=== PATIENT | female | born 1950 | race Caucasian/White ===

== ENCOUNTER 2017-04-09 15:03 | Outpatient (CLI) | payer MEDICARE | END 2017-04-09 15:04 | disposition home or self-care (01) | LOC: BICRAD 15:03 | PROVIDERS: ATTEND Internal Medicine | DX: J18.9 Pneumonia, unspecified organism (principal) | CPT/HCPCS: 71046 ==

== ENCOUNTER 2017-04-22 15:12 | Outpatient (CLI) | payer MEDICARE | END 2017-04-22 15:13 | disposition home or self-care (01) | LOC: BICRAD 15:12 | PROVIDERS: ATTEND Internal Medicine | DX: R06.02 Shortness of breath (principal) | CPT/HCPCS: 71046 ==

== ENCOUNTER 2017-05-06 15:41 | Outpatient (CLI) | payer MEDICARE | END 2017-05-06 15:42 | disposition home or self-care (01) | LOC: BICRAD 15:41 | PROVIDERS: ATTEND Internal Medicine | DX: J18.9 Pneumonia, unspecified organism (principal); J98.11 Atelectasis | CPT/HCPCS: 71046 ==

== ENCOUNTER 2017-06-08 19:30 | Outpatient (CLI) | payer MEDICARE | END 2017-06-08 19:31 | disposition home or self-care (01) | LOC: SLEEPLAB 19:30 | PROVIDERS: ATTEND Internal Medicine Pulmonary Disease | DX: G47.33 Obstructive sleep apnea (adult) (pediatric) (principal); R53.83 Other fatigue; I10 Essential (primary) hypertension | CPT/HCPCS: 95811 ==

== ENCOUNTER 2018-01-12 15:00 | Outpatient (CLI) | payer MEDICARE | END 2018-01-12 15:01 | disposition home or self-care (01) | LOC: BICMAMMO 15:00 | PROVIDERS: ATTEND Internal Medicine | DX: Z12.31 Encounter for screening mammogram for malignant neoplasm of breast (principal); Z80.3 Family history of malignant neoplasm of breast | CPT/HCPCS: 77063; 77067 ==

== ENCOUNTER 2018-03-06 05:27 | Outpatient (CLI) | payer MEDICARE ==
[2018-03-06 12:02] LABS: #Basophils 0.1 thou/uL (0.0-0.2); #Eosinphils 0.2 thou/uL (0.0-0.7); #Lymphocytes 1.5 thou/uL (1.20-3.40); #Monocytes 0.6 thou/uL (0.11-0.59); #Neutrophils 2.3 thou/uL (1.40-6.50); %Basophils 1.5 % (0.0-1.0); %Eosinophils 3.3 % (0.0-10.0); %Monocytes 13.2 % (0.0-10.0); Hemoglobin 12.1 g/dL (12.0-16.0); Mean Corpuscular HGB CONC 32.7 g/dL (32.0-36.0); Mean Corpuscular Hemoglobin 30.1 pg (27.0-31.0); Mean Platelet Volume 7.7 fL (7.4-10.4); Platelet Count 259 thou/uL (130-400); RBC Distribution Width 11.7 % (11.5-14.5); Red Blood Cell (RBC) Count 4.01 mill/uL (4.20-5.40); White Blood Cell (WBC) Count 4.6 thou/uL (4.8-10.8)
[2018-03-06 12:26] LABS: Anion Gap 17 mmol/L (10-20); BUN (Urea Nitrogen) 13 mg/dL (9.8-20.1); Calc. Creatinine Clearance 0 mL/min (70-130); Calcium 9.9 mg/dL (7.8-10.44); Carbon Dioxide 21 mmol/L (23-31); Chloride 99 mmol/L (98-107); Estimated GFR-MDRD 83; Glucose 69 mg/dL (80-115); Potassium 5.2 mmol/L (3.5-5.1); Sodium 132 mmol/L (136-145)
== END 2018-03-06 05:28 | disposition home or self-care (01) ==
LOC: LABBT 05:27
PROVIDERS: ATTEND Specialist
DX: Z01.818 Encounter for other preprocedural examination (principal); K62.1 Rectal polyp
CPT/HCPCS: 80048; 85025; 93005; 93010

== ENCOUNTER 2018-03-12 06:02 | Day surgery (SDC) | payer MEDICARE ==
[2018-03-06 10:49] VITALS: BMI 27.0
[2018-03-12] MEDS ORDERED: Ketorolac Tromethamine 30 MG/ML VIAL ONE (06:19)
[2018-03-12] MEDS ORDERED: cefOXitin Sodium/Dextrose,Iso 2 GM in Premix Bag 1 BAG IVPB SCH (06:30)
[2018-03-12] MEDS ORDERED: Bupivacaine HCl 0.25%/Epi 0.0005/PF 10 ML VIAL FS ONE (07:04)
[2018-03-12] MEDS ORDERED: Fentanyl 100 MCG/2 ML VIAL ONE (07:24)
[2018-03-12] MEDS ORDERED: SUGAMMADEX SODIUM 200 MG/2 ML VIAL ONE (08:26)
--- NOTE | 2018-03-12 09:49 | OP ---
DATE OF PROCEDURE: 03/12/2018 PREOPERATIVE DIAGNOSIS: Rectal polyp. POSTOPERATIVE DIAGNOSIS: Rectal polyp. OPERATION PERFORMED: Transanal resection of rectal polyp. ANESTHESIA: General endotracheal. INDICATIONS: The patient is a 67-year-old white female. She recently underwent a colonoscopy which revealed a 3 cm polyp within her rectum that was not amenable to colonoscopic resection. She is taken to the operative room at this time for transanal resection. DESCRIPTION OF OPERATION: Informed consent was obtained. She was taken to the operating room where general endotracheal anesthesia was obtained. She was rolled over into prone dedrick-knife position. The perianal area was trimmed of hair, prepped with Betadine and draped in sterile fashion. The buttocks had been taped apart during the prep. Local anesthetic was infiltrated in four quadrant in a sphincteric fashion using 0.25% Marcaine with epinephrine. The anus was gently dilated and the anal retractor was used to visualize the polyp. This was on the anterior aspect of the rectum about 9 cm from the anal verge. I was able to grasp this with a Bergen clamp. I placed a suture of 3-0 Vicryl cephalad to the polyp. I infiltrated additional local anesthetics submucosally around the polyp. The polyp was then excised circumferentially in a full-thickness fashion using electrocautery. It was removed intact and passed off the field. The defect was closed in a full-thickness fashion using a running suture of 3-0 Vicryl placed in a to-and-fro fashion. There were meticulous hemostasis and excellent closure of the defect. There were no complications. The patient tolerated the procedure well. Gelfoam with lidocaine was placed within the rectal vault and dry gauze with mesh patch were placed externally. Job ID: [id number]
[2018-03-12] MEDS ORDERED: Glycopyrrolate 0.2 MG/ML 5 ML SYRINGE ONE (17:17)
[2018-03-12] MEDS ORDERED: Rocuronium Bromide 10 MG/ML (10ML VIAL) ONE (17:17)
[2018-03-12] MEDS ORDERED: ePHEDrine 50 MG/ML VIAL ONE (17:17)
[2018-03-12] MEDS ORDERED: PROPOFOL 200 MG/20 ML VIAL ONE (17:17)
[2018-03-12] MEDS ORDERED: Lidocaine 1% PF 5 ML VIAL ONE (17:17)
[2018-03-12] MEDS ORDERED: PHENYLEPHRINE-NS 100 MCG/ML 10 ML SYRINGE ONE (17:17)
== END 2018-03-12 10:58 | disposition home or self-care (01) ==
LOC: SDC 06:02
PROVIDERS: ATTEND Specialist
PROC: 0DBP7ZZ Excision of Rectum, Via Natural or Artificial Opening (ICD-10-PCS; principal; 2018-03-12)
DX: D12.8 Benign neoplasm of rectum (principal); F31.9 Bipolar disorder, unspecified; M81.0 Age-related osteoporosis without current pathological fracture; E03.9 Hypothyroidism, unspecified; F10.11 Alcohol abuse, in remission; Z87.891 Personal history of nicotine dependence; Z79.899 Other long term (current) drug therapy
CPT/HCPCS: 88305; J0131; J1885; J2001; J2704; J3010; J3490

== ENCOUNTER 2019-01-21 14:29 | Outpatient (CLI) | payer MEDICARE ==
--- NOTE | 2019-01-21 16:23 | MMO ---
Bilateral MAMMO Bilat Screen [facility]. CLINICAL HISTORY: Patient is 68 years old and is seen for screening. The patient has the following family history of breast cancer: mother, malignant (generic). The patient has no personal history of cancer. VIEWS: The views performed were: bilateral craniocaudal with tomosynthesis and bilateral mediolateral oblique with tomosynthesis. FILMS COMPARED: The present examination has been compared to prior imaging studies performed at [facility] on 10/27/2014, 01/08/2016, 01/08/2017 and 01/12/2018. This study has been interpreted with the assistance of computer-aided detection. MAMMOGRAM FINDINGS: There are scattered fibroglandular densities. There are no suspicious masses, suspicious calcifications, or new areas of architectural distortion. IMPRESSION: THERE IS NO MAMMOGRAPHIC EVIDENCE OF MALIGNANCY. A ROUTINE FOLLOW-UP MAMMOGRAM IN 1 YEAR IS RECOMMENDED. THE RESULTS OF THIS EXAM WERE SENT TO THE PATIENT. ACR BI-RADS Category 1 - Negative MAMMOGRAPHY NOTE: 1. A negative mammogram report should not delay a biopsy if a dominant of clinically suspicious mass is present. 2. Approximately 10% to 15% of breast cancers are not detected by mammography. 3. Adenosis and dense breasts may obscure an underlying neoplasm. Reported by: YAIR COCHRAN MD Electonically Signed: [id number]
== END 2019-01-21 14:30 | disposition home or self-care (01) ==
LOC: BICMAMMO 14:29
PROVIDERS: ATTEND Internal Medicine
DX: Z12.31 Encounter for screening mammogram for malignant neoplasm of breast (principal); Z80.3 Family history of malignant neoplasm of breast
CPT/HCPCS: 77063; 77067

== ENCOUNTER 2019-03-23 14:56 | Outpatient (CLI) | payer MEDICARE ==
--- NOTE | 2019-03-23 15:51 | BD ---
Exam: DEXA Bone Density 03/23/19 HISTORY: Postmenopausal screening for osteoporosis. FINDINGS: Lumbar Spine: BMD (g/cm2) T-SCORE Z-SCORE L1 0.796 -1.8 0.1 L2 0.789 -2.3 -0.1 L3 0.796 -2.6 -0.4 L4 0.901 -1.5 0.8 L1-L4 0.824 -2.0 0.1 Femoral Neck: 0.619 -2.1 -0.3 Total Femur: 0.697 -2.0 -0.5 Left forearm: UD 0.340 -1.8 -0.3 Mid 0.371 -4.3 -2.2 1/3 0.577 -2.0 0.1 Total: 0.391 -3.5 -1.5 The ten year fracture risk for a major osteoporotic fracture is 18% and for hip fracture is 3.5%. IMPRESSION: Osteopenia. POS: ALEJANDRA
== END 2019-03-23 14:57 | disposition home or self-care (01) ==
LOC: BICMAMMO 14:56
PROVIDERS: ATTEND Internal Medicine Rheumatology
DX: M81.0 Age-related osteoporosis without current pathological fracture (principal); M85.89 Other specified disorders of bone density and structure, multiple sites
CPT/HCPCS: 77080

== ENCOUNTER 2020-03-22 15:53 | Outpatient (CLI) | payer MEDICARE ==
--- NOTE | 2020-03-22 17:02 | MMO ---
Bilateral MAMMO Bilat Screen [facility]. CLINICAL HISTORY: Patient is 69 years old and is seen for screening. The patient has the following family history of breast cancer: mother, malignant (generic). The patient has no personal history of cancer. VIEWS: The views performed were: bilateral craniocaudal with tomosynthesis and bilateral mediolateral oblique with tomosynthesis. FILMS COMPARED: The present examination has been compared to prior imaging studies performed at [facility] on 01/08/2016, 01/08/2017, 01/12/2018 and 01/21/2019. This study has been interpreted with the assistance of computer-aided detection. MAMMOGRAM FINDINGS: The breasts are heterogeneously dense, which could obscure a lesion on mammography. There are no suspicious masses, suspicious calcifications, or new areas of architectural distortion. IMPRESSION: THERE IS NO MAMMOGRAPHIC EVIDENCE OF MALIGNANCY. A ROUTINE FOLLOW-UP MAMMOGRAM IN 1 YEAR IS RECOMMENDED. THE RESULTS OF THIS EXAM WERE SENT TO THE PATIENT. ACR BI-RADS Category 1 - Negative MAMMOGRAPHY NOTE: 1. A negative mammogram report should not delay a biopsy if a dominant of clinically suspicious mass is present. 2. Approximately 10% to 15% of breast cancers are not detected by mammography. 3. Adenosis and dense breasts may obscure an underlying neoplasm. Reported by: JOURDAN ANG MD Electonically Signed: [id number]
== END 2020-03-22 15:54 | disposition home or self-care (01) ==
LOC: BICMAMMO 15:53
PROVIDERS: ATTEND Internal Medicine
DX: Z12.31 Encounter for screening mammogram for malignant neoplasm of breast (principal); Z80.3 Family history of malignant neoplasm of breast
CPT/HCPCS: 77063; 77067

== ENCOUNTER 2020-04-05 14:01 | Outpatient (CLI) | payer MEDICARE ==
--- NOTE | 2020-04-05 14:52 | BD ---
Exam: DEXA Bone Density 04/05/20 HISTORY: Postmenopausal screening for osteoporosis. Lumbar Spine: BMD (g/cm2) T-SCORE Z-SCORE L1 0.762 -2.1 -0.1 L2 0.745 -2.6 -0.4 L3 0.764 -2.9 -0.6 L4 0.841 -2.0 0.3 L1-L4 0.782 -2.4 -0.2 Left Forearm: UD: 0.316 -2.2 -0.6 Mid: 0.390 -4.0 -1.8 /: 0.576 -2.0 0.2 Total: 0.396 -3.4 -1.3 There has been interval reduction of 5.1% in the MBD of the lumbar spine and a reduction of 0.2% in t he BMD of the left forearm since 03/23/2019. Impression: Osteopenia. POS: OFF
== END 2020-04-05 14:02 | disposition home or self-care (01) ==
LOC: BICMAMMO 14:01
PROVIDERS: ATTEND Internal Medicine Rheumatology
DX: M81.0 Age-related osteoporosis without current pathological fracture (principal); M85.832 Other specified disorders of bone density and structure, left forearm
CPT/HCPCS: 77080

== ENCOUNTER 2021-11-22 17:30 | Outpatient (CLI) | payer MEDICARE | END 2021-11-22 17:31 | disposition home or self-care (01) | LOC: SLEEPLAB 17:30 | PROVIDERS: ATTEND Internal Medicine Critical Care Medicine | DX: G47.33 Obstructive sleep apnea (adult) (pediatric) (principal); R06.83 Snoring; F31.9 Bipolar disorder, unspecified; I10 Essential (primary) hypertension; K21.9 Gastro-esophageal reflux disease without esophagitis; G47.00 Insomnia, unspecified | CPT/HCPCS: 95800 ==

== ENCOUNTER 2022-01-08 19:00 | Outpatient (CLI) | payer MEDICARE | END 2022-01-08 19:01 | disposition home or self-care (01) | LOC: SLEEPLAB 19:00 | PROVIDERS: ATTEND Internal Medicine Critical Care Medicine | DX: G47.33 Obstructive sleep apnea (adult) (pediatric) (principal); R53.83 Other fatigue; F31.9 Bipolar disorder, unspecified; K21.9 Gastro-esophageal reflux disease without esophagitis; R06.83 Snoring; G47.00 Insomnia, unspecified; I10 Essential (primary) hypertension; G47.10 Hypersomnia, unspecified; G47.61 Periodic limb movement disorder | CPT/HCPCS: 95811 ==

== ENCOUNTER 2022-03-08 22:48 | Inpatient (IN) | payer MEDICARE ==
[2022-03-08 23:28] LABS: Bacteria/HPF None Seen HPF (None Seen); Bilirubin Negative (Negative); Blood, Urine Negative (Negative); Clarity Clear (Clear); Glucose, Urine (Dipstick) Normal (Negative); Ketone, Urine 150 mg/dL (Negative); Leukocyte Negative Leu/uL (Negative); Nitrite Negative (Negative); Protein, Urine (Dipstick) 50 mg/dL (Neg-Trace); RBC/HPF 0-3 HPF (0-3); Specific Gravity, Urine 1.018 (1.002-1.036); Squamous Epithelial None Seen HPF (0-3); Urobilinogen Normal mg/dL (Less than 2); WBC/HPF 0-3 HPF (0-3); pH, Urine 5.5 (5.0-9.0)
[2022-03-08 23:54] LABS: Amphetamine Not Detected (NotDetected); Barbiturates Screen Not Detected (NotDetected); Benzodiazepine Screen Not Detected (NotDetected); Cocaine Metabolite Screen Not Detected (NotDetected); Methadone Not Detected (NotDetected); Methamphetamine Not Detected (NotDetected); Opiate Screen Not Detected (NotDetected); Oxycodone Screen Not Detected (NotDetected); Phencyclidine (PCP) Not Detected (NotDetected); THC/Cannabinoid Screen Not Detected (NotDetected); Tricyclic Screen Not Detected (NotDetected)
[2022-03-09 00:14] LABS: #Monocytes 0.3 thou/uL (0.11-0.59); #Neutrophils 4.8 thou/uL (1.40-6.50); %Basophils 0.3 % (0.0-1.0); %Eosinophils 0.1 % (0.0-10.0); %Lymphocytes 16.7 % (21.0-51.0); %Monocytes 5.5 % (0.0-10.0); %Neutrophils 77.4 % (42.0-75.0); Hemoglobin 12.1 g/dL (12.0-16.0); Mean Corpuscular HGB CONC 35.2 g/dL (32.0-36.0); Mean Corpuscular Hemoglobin 32.2 pg (27.0-31.0); Mean Corpuscular Volume 91.6 fl (78.0-98.0); Mean Platelet Volume 6.8 fL (7.4-10.4); Platelet Count 368 10x3/uL (130-400); Red Blood Cell (RBC) Count 3.76 mill/uL (4.20-5.40); White Blood Cell (WBC) Count 6.2 10x3/uL (4.8-10.8)
[2022-03-09 00:20] LABS: ALT (SGPT) 19 U/L (8-55); AST (SGOT) 23 U/L (5-34); Albumin 4.3 g/dL (3.4-4.8); Alkaline Phosphatase 60 U/L (40-110); BUN (Urea Nitrogen) 7 mg/dL (9.8-20.1); Bilirubin, Total 0.5 mg/dL (0.2-1.2); Calc. Creatinine Clearance 0 mL/min (70-130); Calcium 9.4 mg/dL (7.8-10.44); Carbon Dioxide 14 mmol/L (23-31); Chloride 89 mmol/L (98-107); Estimated GFR 96; Globulin 3.2 g/dL (2.4-3.5); Glucose 127 mg/dL (83-110); Lipase 13 U/L (8-78); Potassium 4.1 mmol/L (3.5-5.1); Protein, Total 7.5 g/dL (5.8-8.1); Sodium 121 mmol/L (136-145)
[2022-03-09 00:24] LABS: Anion Gap 22 mmol/L (10-20)
[2022-03-09 00:34] LABS: Acetaminophen Less than 10.0 mcg/mL (10.0-30.0); Alcohol Less than 10 mg/dL (Less than 10); Salicylate Less than 8.0 mg/dL (15.0-30.0)
[2022-03-09 01:05] LABS: Actual Bicarbonate (HCO3v) 23 mEq/L (22-28); Analyzer IN Cardio ER; Base Excess -3.2 mEq/L (-2.0 to +3.0); Calcium, Ionized (venous) 1.11 mmol/L (1.16-1.32); Chloride (VBG) 92 mmol/L (98-106); Potassium (VBG) 4.53 mmol/L (3.70-5.30); Sodium 122.7 mmol/L (133-146); pH (venous) 7.34 (7.32-7.43)
[2022-03-09] MEDS ORDERED: Sodium Chloride 0.9% 1,000 ML IV SCH ×2 (02:15→23:15)
[2022-03-09 02:26] LABS: Free T4 (Free Thyroxine) 1.62 ng/dL (0.70-1.48)
[2022-03-09] MEDS ORDERED: Acetaminophen 325 MG TAB PO PRN (02:57)
[2022-03-09] MEDS ORDERED: Ondansetron PF 4 MG/2 ML Vial IVP PRN (02:57)
[2022-03-09 04:25] VITALS: BMI 20.2
[2022-03-09 04:31] LABS: #Basophils 0.1 thou/uL (0.0-0.2); #Lymphocytes 1.7 thou/uL (1.20-3.40); #Monocytes 0.5 thou/uL (0.11-0.59); #Neutrophils 3.5 thou/uL (1.40-6.50); %Basophils 1.5 % (0.0-1.0); %Eosinophils 0.2 % (0.0-10.0); %Lymphocytes 29.9 % (21.0-51.0); %Monocytes 7.8 % (0.0-10.0); %Neutrophils 60.6 % (42.0-75.0); Hemoglobin 11.9 g/dL (12.0-16.0); Mean Corpuscular Hemoglobin 31.3 pg (27.0-31.0); Mean Corpuscular Volume 92.1 fl (78.0-98.0); Mean Platelet Volume 6.7 fL (7.4-10.4); Platelet Count 369 10x3/uL (130-400); RBC Distribution Width 11.2 % (11.5-14.5); Red Blood Cell (RBC) Count 3.79 mill/uL (4.20-5.40); White Blood Cell (WBC) Count 5.8 10x3/uL (4.8-10.8)
[2022-03-09 04:56] LABS: Anion Gap 17 mmol/L (10-20); BUN (Urea Nitrogen) 5 mg/dL (9.8-20.1); Calc. Creatinine Clearance 96 mL/min (70-130); Calcium 9.4 mg/dL (7.8-10.44); Carbon Dioxide 20 mmol/L (23-31); Chloride 94 mmol/L (98-107); Estimated GFR 99; Glucose 103 mg/dL (83-110); Potassium 4.1 mmol/L (3.5-5.1); Sodium 127 mmol/L (136-145)
[2022-03-09] MEDS ORDERED: FLU VACC QS2022-23(65YR UP)/PF 240 MCG/0.7 ML SYRINGE IM ONE (09:00)
[2022-03-09 11:31] LABS: Anion Gap 15 mmol/L (10-20); BUN (Urea Nitrogen) 5 mg/dL (9.8-20.1); Calc. Creatinine Clearance 100 mL/min (70-130); Calcium 8.9 mg/dL (7.8-10.44); Carbon Dioxide 22 mmol/L (23-31); Chloride 93 mmol/L (98-107); Estimated GFR 99; Glucose 103 mg/dL (83-110); Potassium 3.9 mmol/L (3.5-5.1); Sodium 126 mmol/L (136-145)
[2022-03-09 13:39] LABS: Anion Gap 16 mmol/L (10-20); BUN (Urea Nitrogen) 5 mg/dL (9.8-20.1); Calc. Creatinine Clearance 100 mL/min (70-130); Calcium 8.9 mg/dL (7.8-10.44); Carbon Dioxide 21 mmol/L (23-31); Chloride 91 mmol/L (98-107); Estimated GFR 99; Glucose 95 mg/dL (83-110); Potassium 4.1 mmol/L (3.5-5.1); Sodium 124 mmol/L (136-145)
[2022-03-09] MEDS ORDERED: Ipratropium/Albuterol 3 ML NEB NEB PRN (17:46)
[2022-03-09 19:16] LABS: Anion Gap 15 mmol/L (10-20); BUN (Urea Nitrogen) 4 mg/dL (9.8-20.1); Calc. Creatinine Clearance 100 mL/min (70-130); Calcium 9.2 mg/dL (7.8-10.44); Carbon Dioxide 23 mmol/L (23-31); Chloride 92 mmol/L (98-107); Estimated GFR 99; Glucose 112 mg/dL (83-110); Potassium 3.8 mmol/L (3.5-5.1); Sodium 126 mmol/L (136-145)
[2022-03-09] MEDS: Bisoprolol Fumarate 5 MG TAB PO SCH (20:37)
[2022-03-09] MEDS: Aspirin 81 mg Enteric Coated Tablet PO SCH (20:38)
[2022-03-09] MEDS: Senokot S 8.6-50 MG TAB PO SCH (20:38)
[2022-03-09] MEDS: Famotidine 20 MG TAB PO SCH (20:38)
[2022-03-09] MEDS: Simvastatin 10 MG TAB PO SCH (20:38)
[2022-03-09] MEDS: QUEtiapine 25 MG TAB PO SCH (20:38)
[2022-03-09 21:45] LABS: Anion Gap 15 mmol/L (10-20); BUN (Urea Nitrogen) 4 mg/dL (9.8-20.1); Calc. Creatinine Clearance 105 mL/min (70-130); Calcium 8.9 mg/dL (7.8-10.44); Carbon Dioxide 23 mmol/L (23-31); Chloride 89 mmol/L (98-107); Estimated GFR 100; Glucose 100 mg/dL (83-110); Potassium 3.8 mmol/L (3.5-5.1); Sodium 123 mmol/L (136-145)
[2022-03-09] MEDS ORDERED: NIFEdipine XL 60 MG TAB PO SCH (23:15)
[2022-03-10 05:00] LABS: #Lymphocytes 2.5 thou/uL (1.20-3.40); #Monocytes 0.5 thou/uL (0.11-0.59); %Basophils 0.8 % (0.0-1.0); %Eosinophils 0.6 % (0.0-10.0); %Monocytes 8.5 % (0.0-10.0); Hemoglobin 10.9 g/dL (12.0-16.0); Mean Corpuscular HGB CONC 33.8 g/dL (32.0-36.0); Mean Corpuscular Hemoglobin 31.3 pg (27.0-31.0); Mean Corpuscular Volume 92.5 fl (78.0-98.0); Mean Platelet Volume 6.9 fL (7.4-10.4); Platelet Count 338 10x3/uL (130-400); Red Blood Cell (RBC) Count 3.47 mill/uL (4.20-5.40); White Blood Cell (WBC) Count 6.1 10x3/uL (4.8-10.8)
[2022-03-10 05:30] LABS: Albumin 3.6 g/dL (3.4-4.8); Anion Gap 14 mmol/L (10-20); BUN (Urea Nitrogen) 5 mg/dL (9.8-20.1); BUN/Creatinine Ratio 10.42; Calc. Creatinine Clearance 109 mL/min (70-130); Calcium 9.1 mg/dL (7.8-10.44); Carbon Dioxide 21 mmol/L (23-31); Chloride 92 mmol/L (98-107); Estimated GFR 100; Glucose 88 mg/dL (83-110); Phosphorus 2.5 mg/dL (2.3-4.7); Potassium 3.5 mmol/L (3.5-5.1); Sodium 123 mmol/L (136-145)
[2022-03-10] MEDS: Levothyroxine Sodium 75 MCG TAB PO SCH (05:35)
[2022-03-10] MEDS: Ferrous Sulfate 325 MG TAB PO SCH ×2 (09:00→16:16)
[2022-03-10] MEDS: Multivitamin W/ Minerals 1 TAB PO SCH (09:01)
[2022-03-10] MEDS: Aspirin 81 mg Enteric Coated Tablet PO SCH ×2 (09:02→21:10)
[2022-03-10] MEDS: Famotidine 20 MG TAB PO SCH ×2 (09:02→21:10)
[2022-03-10] MEDS: Senokot S 8.6-50 MG TAB PO SCH ×2 (09:03→21:15)
[2022-03-10] MEDS: Polyethylene Glycol 3350 17 GM Packet PO SCH ×2 (09:03→16:33)
[2022-03-10 11:31] LABS: Anion Gap 11 mmol/L (10-20); BUN (Urea Nitrogen) 6 mg/dL (9.8-20.1); Calc. Creatinine Clearance 104 mL/min (70-130); Calcium 8.6 mg/dL (7.8-10.44); Carbon Dioxide 24 mmol/L (23-31); Chloride 92 mmol/L (98-107); Estimated GFR 99; Glucose 117 mg/dL (83-110); Potassium 3.3 mmol/L (3.5-5.1); Sodium 124 mmol/L (136-145)
[2022-03-10] MEDS ORDERED: Potassium Chloride 20 MEQ TAB PO SCH (12:45)
[2022-03-10] MEDS ORDERED: Electrolyte Replacement Protocol FS SCH (12:45)
[2022-03-10] MEDS: QUEtiapine 25 MG TAB PO SCH (21:10)
[2022-03-10] MEDS: Bisoprolol Fumarate 5 MG TAB PO SCH (21:10)
[2022-03-10] MEDS: Simvastatin 10 MG TAB PO SCH (21:10)
[2022-03-10] MEDS: NIFEdipine XL 60 MG TAB PO SCH (21:13)
[2022-03-11 05:11] LABS: #Basophils 0.1 thou/uL (0.0-0.2); #Lymphocytes 2.6 thou/uL (1.20-3.40); #Monocytes 0.6 thou/uL (0.11-0.59); #Neutrophils 3.3 thou/uL (1.40-6.50); %Basophils 0.9 % (0.0-1.0); %Eosinophils 0.6 % (0.0-10.0); %Lymphocytes 39.2 % (21.0-51.0); %Monocytes 8.6 % (0.0-10.0); %Neutrophils 50.7 % (42.0-75.0); Hemoglobin 10.8 g/dL (12.0-16.0); Mean Corpuscular HGB CONC 34.1 g/dL (32.0-36.0); Mean Corpuscular Hemoglobin 31.7 pg (27.0-31.0); Mean Platelet Volume 7.1 fL (7.4-10.4); Platelet Count 315 10x3/uL (130-400); RBC Distribution Width 11.1 % (11.5-14.5); Red Blood Cell (RBC) Count 3.42 mill/uL (4.20-5.40); White Blood Cell (WBC) Count 6.5 10x3/uL (4.8-10.8)
[2022-03-11 05:38] LABS: Anion Gap 11 mmol/L (10-20); BUN (Urea Nitrogen) 5 mg/dL (9.8-20.1); Calc. Creatinine Clearance 104 mL/min (70-130); Calcium 8.7 mg/dL (7.8-10.44); Carbon Dioxide 22 mmol/L (23-31); Chloride 95 mmol/L (98-107); Estimated GFR 99; Glucose 85 mg/dL (83-110); Sodium 124 mmol/L (136-145)
[2022-03-11] MEDS: Levothyroxine Sodium 75 MCG TAB PO SCH (05:41)
[2022-03-11] MEDS: Famotidine 20 MG TAB PO SCH ×2 (08:40→20:47)
[2022-03-11] MEDS: Polyethylene Glycol 3350 17 GM Packet PO SCH (08:42)
[2022-03-11] MEDS: Aspirin 81 mg Enteric Coated Tablet PO SCH ×2 (08:42→20:46)
[2022-03-11] MEDS: Ferrous Sulfate 325 MG TAB PO SCH ×2 (08:42→18:49)
[2022-03-11] MEDS: Multivitamin W/ Minerals 1 TAB PO SCH (08:43)
[2022-03-11] MEDS: Senokot S 8.6-50 MG TAB PO SCH ×2 (11:22→20:47)
[2022-03-11] MEDS ORDERED: Furosemide 20 MG TAB PO SCH (13:15)
[2022-03-11] MEDS: Bisoprolol Fumarate 5 MG TAB PO SCH (20:46)
[2022-03-11] MEDS: Simvastatin 10 MG TAB PO SCH (20:47)
[2022-03-11] MEDS: QUEtiapine 25 MG TAB PO SCH (20:47)
[2022-03-11] MEDS: NIFEdipine XL 60 MG TAB PO SCH (20:49)
[2022-03-12] MEDS: Levothyroxine Sodium 75 MCG TAB PO SCH (05:00)
[2022-03-12 06:50] LABS: #Basophils 0.1 thou/uL (0.0-0.2); #Eosinphils 0.1 thou/uL (0.0-0.7); #Lymphocytes 2.5 thou/uL (1.20-3.40); #Monocytes 0.6 thou/uL (0.11-0.59); %Basophils 0.9 % (0.0-1.0); %Eosinophils 0.9 % (0.0-10.0); %Lymphocytes 34.2 % (21.0-51.0); %Monocytes 8.6 % (0.0-10.0); %Neutrophils 55.4 % (42.0-75.0); Hemoglobin 12.8 g/dL (12.0-16.0); Mean Corpuscular HGB CONC 35.2 g/dL (32.0-36.0); Mean Corpuscular Volume 93.7 fl (78.0-98.0); Mean Platelet Volume 6.9 fL (7.4-10.4); Platelet Count 381 10x3/uL (130-400); RBC Distribution Width 11.1 % (11.5-14.5); Red Blood Cell (RBC) Count 3.87 mill/uL (4.20-5.40); White Blood Cell (WBC) Count 7.2 10x3/uL (4.8-10.8)
[2022-03-12 07:13] LABS: ALT (SGPT) 12 U/L (8-55); AST (SGOT) 12 U/L (5-34); Albumin 3.8 g/dL (3.4-4.8); Alkaline Phosphatase 52 U/L (40-110); Anion Gap 15 mmol/L (10-20); BUN (Urea Nitrogen) 8 mg/dL (9.8-20.1); Bilirubin, Total 0.4 mg/dL (0.2-1.2); Calc. Creatinine Clearance 74 mL/min (70-130); Calcium 9.6 mg/dL (7.8-10.44); Carbon Dioxide 24 mmol/L (23-31); Chloride 95 mmol/L (98-107); Estimated GFR 93; Globulin 2.9 g/dL (2.4-3.5); Glucose 91 mg/dL (83-110); Potassium 3.6 mmol/L (3.5-5.1); Protein, Total 6.7 g/dL (5.8-8.1); Sodium 130 mmol/L (136-145)
[2022-03-12] MEDS: Ferrous Sulfate 325 MG TAB PO SCH (09:23)
[2022-03-12] MEDS: Senokot S 8.6-50 MG TAB PO SCH (09:24)
[2022-03-12] MEDS: Famotidine 20 MG TAB PO SCH (09:24)
[2022-03-12] MEDS: Polyethylene Glycol 3350 17 GM Packet PO SCH (09:24)
[2022-03-12] MEDS: Multivitamin W/ Minerals 1 TAB PO SCH (09:24)
[2022-03-12] MEDS: Aspirin 81 mg Enteric Coated Tablet PO SCH (09:24)
[2022-03-12 11:51] VITALS: TEMP 97.7
[2022-03-12 15:51] VITALS: BP 131/62
== END 2022-03-12 18:45 | disposition home or self-care (01) | DRG 643 ==
LOC: ERS 22:48 → 2NO 03-09 01:55
PROVIDERS: ADMIT Internal Medicine Nephrology; ATTEND Nurse Practitioner Family
DX: E22.2 Syndrome of inappropriate secretion of antidiuretic hormone (principal); G93.41 Metabolic encephalopathy; E87.20 Acidosis, unspecified; F31.9 Bipolar disorder, unspecified; E03.9 Hypothyroidism, unspecified; E78.5 Hyperlipidemia, unspecified; Z96.642 Presence of left artificial hip joint; D64.9 Anemia, unspecified; K21.9 Gastro-esophageal reflux disease without esophagitis; Z79.899 Other long term (current) drug therapy; Z79.890 Hormone replacement therapy; Z79.82 Long term (current) use of aspirin; Z90.49 Acquired absence of other specified parts of digestive tract; Z98.890 Other specified postprocedural states; Z87.891 Personal history of nicotine dependence; Z86.79 Personal history of other diseases of the circulatory system
CPT/HCPCS: 36415; 51701; 70450; 71045; 80048; 80053; 80306; 80307; 81003; 81015; 82550; 82805; 83605; 83690; 83880; 83930; 83935; 84300; 84439; 84443; 84481; 84484; 85025; 87040; 87086; 93005; 96360; 96361; J2597; J7050; U0003; U0005

== ENCOUNTER 2022-03-14 21:35 | Emergency (ER) | payer MEDICARE ==
[2022-03-14 22:14] LABS: Bacteria/HPF 2+ HPF (None Seen); Bilirubin 1+ (Negative); Blood, Urine Negative (Negative); Clarity Clear (Clear); Glucose, Urine (Dipstick) Normal (Negative); Ketone, Urine 150 mg/dL (Negative); Leukocyte 75 Leu/uL (Negative); Mucous/LPF Rare LPF (<2+); Nitrite Negative (Negative); Protein, Urine (Dipstick) 100 mg/dL (Neg-Trace); Specific Gravity, Urine 1.024 (1.002-1.036); Squamous Epithelial 0-3 HPF (0-3); WBC/HPF 21-50 HPF (0-3)
[2022-03-14 22:18] LABS: Amphetamine Not Detected (NotDetected); Barbiturates Screen Not Detected (NotDetected); Benzodiazepine Screen Not Detected (NotDetected); Cocaine Metabolite Screen Not Detected (NotDetected); Methadone Not Detected (NotDetected); Methamphetamine Not Detected (NotDetected); Opiate Screen Not Detected (NotDetected); Oxycodone Screen Not Detected (NotDetected); Phencyclidine (PCP) Not Detected (NotDetected); THC/Cannabinoid Screen Not Detected (NotDetected); Tricyclic Screen Not Detected (NotDetected)
[2022-03-14 22:27] LABS: #Basophils 0.1 thou/uL (0.0-0.2); #Lymphocytes 1.5 thou/uL (1.20-3.40); #Monocytes 0.5 thou/uL (0.11-0.59); #Neutrophils 3.3 thou/uL (1.40-6.50); %Basophils 1.2 % (0.0-1.0); %Eosinophils 0.6 % (0.0-10.0); %Lymphocytes 27.1 % (21.0-51.0); %Neutrophils 61.2 % (42.0-75.0); Hemoglobin 13.9 g/dL (12.0-16.0); Mean Corpuscular HGB CONC 34.2 g/dL (32.0-36.0); Mean Corpuscular Hemoglobin 32.2 pg (27.0-31.0); Mean Corpuscular Volume 93.9 fl (78.0-98.0); Mean Platelet Volume 6.8 fL (7.4-10.4); Platelet Count 389 10x3/uL (130-400); RBC Distribution Width 11.1 % (11.5-14.5); Red Blood Cell (RBC) Count 4.32 mill/uL (4.20-5.40); White Blood Cell (WBC) Count 5.4 10x3/uL (4.8-10.8)
[2022-03-14 22:47] LABS: Alcohol Less than 10 mg/dL (Less than 10); Anion Gap 19 mmol/L (10-20); BUN (Urea Nitrogen) 12 mg/dL (9.8-20.1); Calc. Creatinine Clearance 0 mL/min (70-130); Calcium 10.3 mg/dL (7.8-10.44); Carbon Dioxide 22 mmol/L (23-31); Chloride 96 mmol/L (98-107); Estimated GFR 92; Glucose 100 mg/dL (83-110); Potassium 3.8 mmol/L (3.5-5.1); Sodium 133 mmol/L (136-145)
[2022-03-14 22:48] LABS: ALT (SGPT) 13 U/L (8-55); AST (SGOT) 14 U/L (5-34); Acetaminophen Less than 10.0 mcg/mL (10.0-30.0); Albumin 4.5 g/dL (3.4-4.8); Alcohol Less than 10 mg/dL (Less than 10); Alkaline Phosphatase 67 U/L (40-110); Anion Gap 20 mmol/L (10-20); BUN (Urea Nitrogen) 12 mg/dL (9.8-20.1); Bilirubin, Total 0.4 mg/dL (0.2-1.2); CK (CPK) 35 U/L (29-168); Calc. Creatinine Clearance 0 mL/min (70-130); Calcium 10.5 mg/dL (7.8-10.44); Carbon Dioxide 22 mmol/L (23-31); Chloride 95 mmol/L (98-107); Estimated GFR 92; Globulin 3.3 g/dL (2.4-3.5); Glucose 100 mg/dL (83-110); Potassium 3.7 mmol/L (3.5-5.1); Protein, Total 7.8 g/dL (5.8-8.1); Salicylate Less than 8.0 mg/dL (15.0-30.0); Sodium 133 mmol/L (136-145)
[2022-03-14] MEDS ORDERED: cefTRIAXone\\ROCEPHIN 1 GM VIAL ONE (22:54)
[2022-03-14] MEDS ORDERED: Lidocaine 1% PF 5 ML VIAL ONE (22:55)
[2022-03-15] MEDS ORDERED: Bacitracin 1 PK ONE (08:22)
== END 2022-03-15 10:45 ==
LOC: ERS 21:35
DX: F23 Brief psychotic disorder (principal); N30.90 Cystitis, unspecified without hematuria
CPT/HCPCS: 36415; 70450; 80048; 80306; 80307; 81003; 81015; 82550; 84443; 85025; 87040; 87086; 93005; 96372; J0696